=== PATIENT | male | born 1960 | race Caucasian/White ===

== ENCOUNTER 2017-10-07 11:11 | Emergency (ER) | payer MEDICARE ==
[~2017-10-07] VITALS: Ht 172.7 cm; Wt 136.1 kg
[~2017-10-07 11:11] MED LIST: ASPIR 8181 MG PO; CIPRO500 MG PO; FLUOXETINE HCL20 M1 PO; KEFLEX500 MG PO; METOPROLOL SUCC25 MG PO; TRAMADOL HCL50 MG PO; VITAMIN C500 M4 PO; ZOCOR40 MG PO
[2017-10-07] MEDS ORDERED: METHYLPREDNISOLO4 M1 PO (11:48)
== END 2017-10-07 12:20 | disposition home or self-care (01) ==
LOC: ED 11:11
DX: S86.211A Strain of muscle(s) and tendon(s) of anterior muscle group at lower leg level, right leg, initial encounter (principal); E66.9 Obesity, unspecified; I11.0 Hypertensive heart disease with heart failure; I50.9 Heart failure, unspecified; F17.200 Nicotine dependence, unspecified, uncomplicated; Z88.0 Allergy status to penicillin; Z79.899 Other long term (current) drug therapy; Z79.82 Long term (current) use of aspirin; X58.XXXA Exposure to other specified factors, initial encounter
CPT/HCPCS: 73560; 99283

== ENCOUNTER 2018-03-28 06:35 | Day surgery (SDC) | payer MEDICARE ==
[~2018-03-28] VITALS: Ht 172.7 cm; Wt 128.8 kg
[~2018-03-28 06:35] MED LIST changes: +FLOMAX0.4 MG PO; +GABAPENTIN800 MG PO; +METHYLPREDNISOLO4 M1 PO; +MS CONTIN15 MG PO; +MULTIPLE VITAM1 EAC2 PO; +VITAMIN B-6100 MG PO
--- NOTE | 2018-03-28 07:34 | NUR ---
PATIENT READY FOR SURGERY. DR. VANN IN TO SEE PATIENT.
--- NOTE | 2018-03-28 08:36 | NUR ---
PATIENT TO SURGERY.
--- NOTE | 2018-03-28 10:20 | NUR ---
03/28/18 1020 [place] Santiago 0953 PT ARRIVED ASLEEP ON 10L VIA MASK. RESP EVEN AND UNLABORED, UPPER WHEEZE/COURSE SOUNDS NOTED. 957 UPPER LUNG SOUNDS CLEARED WITH COUGH. PT REACTIVE. O2 MASK REMOVED DUE TO PT PULLING ON IT. PT ABLE TO DEEP BREATH AND COUGH. 1013 PT REPORTS PAIN 7/10, PAIN MEDICATION GIVEN. 1020 PT REPORTS NO CHANGE IN PAIN. PT O2 SAT 90%. PT ENCOURAGED TO DEEP BREATH.
--- NOTE | 2018-03-28 11:01 | NUR ---
PATIENT BACK FROM SURGERY. NEWMAN CATHETER INTACT AND DRAINING CLEAR YELLOW URINE. THERE IS REDDISH URINE IN NEWMAN BAG. PATIENT IS FAMILIAR WITH NEWMAN CATHETER CARE AND WILL BE TAKING NEWMAN HOME WITH PLAN TO D/C AT DR. VANN OFFICE VISIT ON WEDNESDAY. PATIENT IS TOLERATING COFFEE, PUDDING, AND CRACKERS.
[2018-03-28] MEDS ORDERED: LEVAQUIN750 MG PO (11:18)
[2018-03-28] MEDS ORDERED: DILAUDID2 MG PO (11:22)
--- NOTE | 2018-03-28 11:52 | NUR ---
PATIENT EATING WELL, ABLE TO AMBULATE INDEPENDANTLY. NEWMAN WITH 200ML OF LIGHT PINK/CLEAR URINE EMPTIED. PATIENT PREFERS TO RESUME HOME PAIN MEDICATION REGIMEN AT DISCHARGE. PATIENT IS COMFORTABLE WITH NEWMAN CATHETER AND TAKING CARE OF IT AT HOME.
--- NOTE | 2018-03-28 12:00 | NUR ---
PATIENT GIVEN WHEELCHAIR RIDE OUT TO CAR, PLACED SELF IN PASSENGER SEAT FOR FRIEND (TI) TO TRANSPORT HOME.
--- NOTE | 2018-03-29 18:37 | OR ---
[facility] [address] [place], [place] [address] Signed DATE OF OPERATION: 03/28/2018 SURGEON: Roger Vann MD PREOPERATIVE DIAGNOSES: 1. Meatal stenosis. 2. History of urethral stricture of unknown size/significance. POSTOPERATIVE DIAGNOSES: 1. Meatal stenosis. 2. Tight urethral stricture, primarily in the pendulous urethra and distal bulbar urethra. NAMES OF PROCEDURES: 1. Meatotomy. 2. Urethral dilation via Lamonte dilators, from 10-Libyan to 18-Libyan. 3. Diagnostic cystourethroscopy. 4. Insertion of a 16-Libyan [place]-tip Goncalves catheter over a guidewire. ANESTHESIA: Sedation with 10 mL of 0.25% Marcaine/2% lidocaine penile block. ESTIMATED BLOOD LOSS: 50 mL. COMPLICATIONS: None. SPECIMENS: None. DRAINS: A 16-Libyan [place]-tip Goncalves catheter, connected to gravity drainage. INDICATIONS FOR PROCEDURE: Mr. Bowers is a very pleasant 57-year-old gentleman with a past medical history significant for coronary artery disease, chronic pain, and longstanding urethral stricture. I have known Pop now for about a year and we have been managing his urethral stricture with self-dilation per his preference. However on his most recent office visit, he admitted that he had stopped self-dilating for the last 2-3 months and Electronically Signed By: ROGER VANN MD 03/29/18 1837 PATIENT NAME: POP BOWERS OPERATIVE REPORT DATE OF : 56 REPORT #: [id number] PHYSICIAN: ROGER VANN MD PCP: NO PRIMARY CARE PHYSICIAN REPORT IS CONFIDENTIAL AND NOT TO BE RELEASED WITHOUT AUTHORIZATION [facility] [address] [place], [place] [address] Signed had noticed significant diminishment in his force of stream. He was requesting that his current b.i.d. dose of Flomax be increased. I explained to him that the Flomax is likely not going to increase the caliber of his stream due to the likely worsening of his existing urethral stricture. He presents today to undergo evaluation of his pendulous urethra and prostatic urethra along with likely meatotomy for his active meatal stenosis. OPERATIVE FINDINGS: 1. Visualization of the external genitalia reveals a circumcised phallus with a glanular meatus. The meatus is stenotic and there is a small pinpoint opening where urine is likely exiting. There is no evidence of any lichen sclerosis externally or near the urethral meatus. Testicles are descended bilaterally and were without any palpable masses. 2. After performing a dilation of the fossa navicularis using Luce sounds from 10-Libyan to 18-Libyan, I was able to insert a rigid cystoscope using a 17-Libyan sheath into the fossa navicularis and I could appreciate the presence of luminal narrowing in the pendulous urethra. A guidewire was passed into the bladder through the stricture still present in the fossa navicularis. 3. Prior to urethral dilation, a simple meatotomy was performed, which opened up his meatus to allow for a 22-1/2-Libyan sheath at maximum diameter. 4. The patient's urethra was dilated using over a wire using Lamonte dilators, from 10-Libyan to 18-Libyan with no complication. I did encounter a significant amount of resistance as each Lamonte dilator increased in diameter. I chose not to attempt to dilate to a 20-Libyan for fear of damaging the urethra. 5. Diagnostic cystourethroscopy was performed, revealed [id number] lateral lobe hypertrophy with no evidence of any prominent median bar. Cystoscopy revealed mild grade 1 to 2 bladder wall trabeculation. Bilateral ureteral orifices are in their normal anatomic location. There were no obvious bladder masses, lesions, or stones noted in the bladder. 6. At the end of the procedure, a 16-Libyan Councill tip catheter was passed over an indwelling Sensor wire into the patient's bladder and then connected to gravity drainage. DESCRIPTION OF PROCEDURE: After informed consent was obtained, the patient was taken back to the operating room. He was transferred from the [facility] to the operating room table where sedation with local anesthesia was performed. A 10 mL of a combination of 0.25% Marcaine and 2% lidocaine were injected into the base of the penis near the dorsal neurovascular bundle of the penis for local anesthetic. I then performed examination of the external genitalia. Please see above findings. I inserted a small hemostat into the urethral meatus to dilate what existed of the urethral meatus. I then used a straight clamp and I clamped approximately 1 cm skin dorsal to the meatus. This was clamped for 2 minutes. So, I Electronically Signed By: ROGER VANN MD 03/29/18 6121 PATIENT NAME: POP BOWERS OPERATIVE REPORT DATE OF : 56 REPORT #: [id number] PHYSICIAN: ROGER VANN MD PCP: NO PRIMARY CARE PHYSICIAN REPORT IS CONFIDENTIAL AND NOT TO BE RELEASED WITHOUT AUTHORIZATION [address] [address] Signed removed the clamp and then incised the tissue at the midline. I placed two pairs of 4-0 chromic sutures in a simple interrupted fashion on each side of the meatotomy along with another simple interrupted 4-0 chromic stitch at the apex of meatotomy. This seemed to control the oozing from the dorsal aspect of the meatotomy quite well. I then turned my attention to urethral dilation. The patient's urethra was dilated using Deborah sounds from 10-Libyan to 18-Libyan. I then inserted a rigid cystoscope via 17-Libyan sheath and was able to perform ureteroscopy primarily of the fossa navicularis. Please see above findings. I passed 0.035 Sensor wire through the narrowing in the pendulous urethra into the bladder. Over the wire, the patient's pendulous urethra was dilated from 10-Libyan to 18-Libyan using Lamonte dilators. This was performed without complication. Once the patient's urethra was safely dilated, I attempted to pass the scope over the wire, however, I did not have a large enough sheath to do so, so I inserted the cystoscope using a 17-Libyan sheath and was able to safely make my way into the bladder. The patient's bladder was then emptied. I then performed a thorough diagnostic cystourethroscopy. Please see above findings. Once I was finished with the ureteroscopy, I inserted another Sensor wire through the scope and then removed the cystoscope leaving the Sensor wire in place. Over the wire, I passed a 16-Libyan [place]-tip Goncalves catheter into the patient's bladder via the wire guidance. The wire was removed and the catheter was irrigated to confirm adequate placement. A 15 mL of sterile water was then infused into the balloon of the Goncalves catheter. The catheter was then connected to gravity drainage. The procedure was then terminated. The patient tolerated the procedure well without any complication. He will now be transferred to the postanesthesia care unit in stable condition. DISPOSITION: Mr. Bowers will be discharged to home later today with a Goncalves catheter gravity drainage. He will return to clinic in three days to undergo voiding trial. He will be sent home today with Levaquin 750 mg p.o. x7 days along with Percocet as needed for pain. I will plan to discuss with him on , the results of my procedure today. Namely, he appears to have at least two significant urethral narrowings in the pendulous urethra. It is possible we can manage these with urethral self dilation on a daily basis using steroid cream. However, given the patient's history, he is known to be noncompliant with this. I will make it clear to him on that if he fails to self dilate on a daily basis, it is highly likely that his pendulous urethral stricture will return and that he will require more definitive urethral reconstruction, likely at [facility]. Roger Vann MD Electronically Signed By: ROGER VANN MD 03/29/181836 PATIENT NAME: POP BOWERS OPERATIVE REPORT DATE OF : 56 REPORT #: [id number] PHYSICIAN: ROGER VANN MD PCP: NO PRIMARY CARE PHYSICIAN REPORT IS CONFIDENTIAL AND NOT TO BE RELEASED WITHOUT AUTHORIZATION [facility] [address] [facility] [place] [address] Signed AR/MODL /[id number] Copies: ~ Electronically Signed By: ROGER VANN MD 03/29/18 1837 PATIENT NAME: KVNGPOP OPERATIVE REPORT DATE OF : 56 REPORT #: [id number] PHYSICIAN: ROGER VANN MD PCP: NO PRIMARY CARE PHYSICIAN REPORT IS CONFIDENTIAL AND NOT TO BE RELEASED WITHOUT AUTHORIZATION
== END 2018-03-28 12:00 | disposition home or self-care (01) ==
LOC: DS 06:35
PROVIDERS: Urology
PROC: 0T7D8ZZ Dilation of Urethra, Via Natural or Artificial Opening Endoscopic (ICD-10-PCS; principal; 2018-03-28 08:15)
DX: N35.9 Urethral stricture, unspecified (principal); M54.5 Low back pain; G89.29 Other chronic pain; G62.9 Polyneuropathy, unspecified; I10 Essential (primary) hypertension; I25.2 Old myocardial infarction; F32.9 Major depressive disorder, single episode, unspecified; F17.210 Nicotine dependence, cigarettes, uncomplicated; N37 Urethral disorders in diseases classified elsewhere; N48.0 Leukoplakia of penis; G47.30 Sleep apnea, unspecified; F40.240 Claustrophobia; I25.10 Atherosclerotic heart disease of native coronary artery without angina pectoris; E78.00 Pure hypercholesterolemia, unspecified; Z88.0 Allergy status to penicillin; Z79.899 Other long term (current) drug therapy; Z95.5 Presence of coronary angioplasty implant and graft
CPT/HCPCS: J0696; J2250; J2270; J2405; J2704; J3010; J7120

== ENCOUNTER 2018-11-23 08:52 | Emergency (ER) | payer MEDICARE ==
[~2018-11-23] VITALS: Ht 172.7 cm; Wt 131.0 kg
[~2018-11-23 08:52] MED LIST changes: +DILAUDID2 MG PO; +LEVAQUIN750 MG PO
== END 2018-11-23 09:12 | disposition home or self-care (01) ==
LOC: ED 08:52
DX: H92.02 Otalgia, left ear (principal)

== ENCOUNTER 2018-11-25 11:01 | Emergency (ER) | payer MEDICARE ==
[~2018-11-25] VITALS: Ht 172.7 cm; Wt 117.9 kg
--- OUTSIDE RECORDS SUMMARY | 2018-11-25 11:06 | XMS ---
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 EVanessa VISIT COUNT (12 MO.) 2 [facility] TOTAL 2 NOTE: Visits indicate total known visits. ED/C VISIT TRACKING (12 MO.) 11/25/2018 11:03 [facility] [place] TYPE: Emergency COMPLAINT: - EAR PROBLEM/SINUS PROBLEM 11/23/2018 08:54 [facility] [place] TYPE: Emergency COMPLAINT: - L EAR PAIN/NO INJURY INPATIENT VISIT TRACKING (12 MO.) No inpatient visits to display in this time frame [email or web address]
[2018-11-25] MEDS ORDERED: BACTRIM 400-801 EACH PO (11:36)
[2018-11-25] MEDS ORDERED: CLEOCIN HCL300 MG PO (12:32)
[2018-11-25] MEDS ORDERED: FAMCICLOVIR500 MG PO (12:32)
== END 2018-11-25 12:43 | disposition home or self-care (01) ==
LOC: ED 11:01
DX: L03.211 Cellulitis of face (principal); J34.0 Abscess, furuncle and carbuncle of nose; I10 Essential (primary) hypertension; F17.200 Nicotine dependence, unspecified, uncomplicated; E66.9 Obesity, unspecified; Z90.49 Acquired absence of other specified parts of digestive tract; Z95.5 Presence of coronary angioplasty implant and graft; Z88.0 Allergy status to penicillin; Z79.899 Other long term (current) drug therapy
CPT/HCPCS: 99283